=== PATIENT | female | born 1945 | race Caucasian/White ===

== ENCOUNTER 2024-03-21 11:44 | Inpatient (IN) | payer OTHER, MEDICARE ==
[2024-03-21] MEDS ORDERED: methylPREDNISolone NA SUCC 125 MG/2 ML VIAL ONE (12:52)
[2024-03-21] MEDS ORDERED: ALBUTEROL SO4 2.5/IPRATROPIUM 0.5 INH SOL 3 ML VIAL.NEB. NEB ONE ×3 (12:52→20:02)
[2024-03-21] MEDS: methylPREDNISolone NA SUCC 125 MG/2 ML VIAL IVPUSH ONE (13:00)
[2024-03-21] MEDS: ALBUTEROL SO4 2.5/IPRATROPIUM 0.5 INH SOL 3 ML VIAL.NEB. NEB ONE ×2 (13:00→14:06)
[2024-03-21 13:03] LABS: BASO % 0.1 % (0-2.0); HEMATOCRIT 37.1 % (32.4-45.2); HEMOGLOBIN 12.6 GM/dL (10.7-15.3); LYMPH % 5.2 % (8-40); MCH 29.5 pg (25.7-33.7); MCHC 34.1 g/dl (32.0-36.0); MEAN CELL VOLUME 86.6 fl (80-96); MEAN PLT VOLUME 7.1 fl (7.5-11.1); MONO % 6.7 % (3.8-10.2); PLATELET COUNT 360 10^3/uL (134-434); RBC 4.29 M/mm3 (3.60-5.2); RDW 13.1 % (11.6-15.6); WHITE BLOOD COUNT 13.3 K/mm3 (4.0-10.0)
[2024-03-21 13:08] LABS: INR 0.94 (0.83-1.09); PROTHROMBIN TIME (PATIENT) 10.6 SEC (9.7-13.0)
[2024-03-21 13:20] LABS: POTASSIUM 4.6 mmol/L (3.5-5.1)
[2024-03-21 13:22] LABS: CALCIUM 9.6 mg/dL (8.5-10.1)
[2024-03-21 13:23] LABS: ALBUMIN 3.5 g/dl (3.4-5.0); BLOOD UREA NITROGEN 27.1 mg/dL (7-18)
[2024-03-21 13:27] LABS: BILIRUBIN,TOTAL 0.3 mg/dL (0.2-1); TOT PROT 6.5 g/dl (6.4-8.2)
[2024-03-21] MEDS ORDERED: AZITHROMYCIN IVPB 500 MG/250 ML BAG IVPB ONE (14:24)
[2024-03-21] MEDS: AZITHROMYCIN IVPB 500 MG in DEXTROSE 5%-WATER - 250 ML IVPB ONE (14:25)
[2024-03-21] MEDS ORDERED: ALBUTEROL SO4 0.042% IH SOL 1.25 MG/3 ML VIAL.NEB NEB PRN (15:59)
[2024-03-21] MEDS: SODIUM CHLORIDE 500 ML IV STA (16:33)
[2024-03-21] MEDS: REMDESIVIR 200 MG in SODIUM CHLORIDE 250 ML IVPB ONE (17:37)
[2024-03-21] MEDS ORDERED: ENOXAPARIN NA (PORCINE) 40 MG/0.4 ML DISP.SYRIN SQ ONE (19:37)
[2024-03-21] MEDS: TIOTROPIUM BROMIDE 2.5 MCG (SPIRIVA) RESPIMAT INHALER IH SCH (19:58)
[2024-03-21] MEDS: ENOXAPARIN NA (PORCINE) 40 MG/0.4 ML DISP.SYRIN SQ SCH (19:58)
[2024-03-21] MEDS: ALBUTEROL SO4 2.5/IPRATROPIUM 0.5 INH SOL 3 ML VIAL.NEB. NEB SCH (20:01)
[2024-03-21] MEDS ORDERED: PATIENT'S OWN MEDICATION (NON-FORMULARY) (Mirabegron [Myrbetriq] 25 MG Tab.Er.24h) PO SCH (20:30)
[2024-03-21] MEDS ORDERED: INSULIN ASPART SLIDING SCALE (NOVOLOG) 1 VIAL SQ SCH (22:00)
[2024-03-21] MEDS: ROSUVASTATIN CA 10 MG TABLET PO SCH (22:17)
[2024-03-21] MEDS: ZOLPIDEM TARTRATE 5 MG TABLET PO PRN (22:17)
[2024-03-21] MEDS: BUDESONIDE/FORMETEROL FUMARATE 160/4.5 mcg INHALER IH SCH (22:18)
[2024-03-21] MEDS: BENZONATATE 200 MG CAPSULE PO PRN (23:22)
[2024-03-21 23:48] VITALS: BMI 20.9
[2024-03-22] MEDS: LEVOTHYROXINE NA 88 MCG TABLET (FP) PO SCH (06:25)
[2024-03-22] MEDS: INSULIN ASPART SLIDING SCALE (NOVOLOG) 1 VIAL SQ SCH (06:33)
[2024-03-22] MEDS ORDERED: INSULIN ASPART SLIDING SCALE (NOVOLOG) 1 VIAL SQ SCH (07:00)
[2024-03-22] MEDS: DEXAMETHASONE SOD PHOSPHATE 10 MG/1 ML VIAL IVPUSH SCH (09:48)
[2024-03-22] MEDS: AZITHROMYCIN IVPB 250 MG in DEXTROSE 5%-WATER - 250 ML IVPB SCH (09:48)
[2024-03-22 10:41] LABS: HEMATOCRIT 38.6 % (32.4-45.2); HEMOGLOBIN 13.2 GM/dL (10.7-15.3); MCH 29.9 pg (25.7-33.7); MCHC 34.1 g/dl (32.0-36.0); MEAN CELL VOLUME 87.6 fl (80-96); MEAN PLT VOLUME 7.8 fl (7.5-11.1); PLATELET COUNT 328 10^3/uL (134-434); RBC 4.41 M/mm3 (3.60-5.2); WHITE BLOOD COUNT 10.5 K/mm3 (4.0-10.0)
[2024-03-22 10:42] LABS: POTASSIUM 3.6 mmol/L (3.5-5.1)
[2024-03-22 10:53] LABS: BLOOD UREA NITROGEN 21.2 mg/dL (7-18); MAGNESIUM 2.1 mg/dL (1.8-2.4)
[2024-03-22 10:55] LABS: CREATININE 0.9 mg/dL (0.55-1.3)
[2024-03-22 10:56] LABS: PHOSPHOROUS 2.9 mg/dL (2.5-4.9)
[2024-03-23 08:37] LABS: BASO % 0.2 % (0-2.0); EOS % 0.1 % (0-4.5); HEMATOCRIT 37.1 % (32.4-45.2); HEMOGLOBIN 12.4 GM/dL (10.7-15.3); LYMPH % 12.5 % (8-40); MCH 29.7 pg (25.7-33.7); MCHC 33.3 g/dl (32.0-36.0); MEAN CELL VOLUME 88.9 fl (80-96); MEAN PLT VOLUME 7.4 fl (7.5-11.1); MONO % 7.9 % (3.8-10.2); NEUT % 79.3 % (42.8-82.8); PLATELET COUNT 283 10^3/uL (134-434); RBC 4.17 M/mm3 (3.60-5.2); RDW 13.2 % (11.6-15.6); WHITE BLOOD COUNT 8.8 K/mm3 (4.0-10.0)
[2024-03-23 08:52] LABS: CHLORIDE 106 mmol/L (98-107); POTASSIUM 3.6 mmol/L (3.5-5.1); SODIUM 140 mmol/L (136-145)
[2024-03-23 08:54] LABS: CALCIUM 8.3 mg/dL (8.5-10.1)
[2024-03-23 08:55] LABS: ANION GAP 6 mmol/L (4-13); BLOOD UREA NITROGEN 23.5 mg/dL (7-18); CO2 28 mmol/L (21-32); GLUCOSE,RANDOM 99 mg/dL (74-106)
[2024-03-23 08:58] LABS: CREATININE 0.8 mg/dL (0.55-1.3)
[2024-03-23] MEDS: ACETAMINOPHEN WITH CODEINE 300MG/30MG TABLET PO PRN (18:09)
[2024-03-23] MEDS: methylPREDNISolone NA SUCC 40 MG/1 ML VIAL IVPUSH ONE (18:09)
[2024-03-23] MEDS: ALBUTEROL SO4 0.083% IH SOL 2.5 MG/3 ML VIAL.NEB. NEB PRN (18:17)
[2024-03-24 14:46] VITALS: RESP 19
[2024-03-24 14:47] VITALS: BP 155/72; PULSE 88; TEMP 98.1
== END 2024-03-24 15:37 | disposition home or self-care (01) | DRG 190 ==
LOC: JER 11:44 → JERBED 17:03 → J7W 20:29 → OBSVTOIN 03-22 15:15
PROVIDERS: ADMIT Internal Medicine; ATTEND Internal Medicine
DX: J44.1 Chronic obstructive pulmonary disease with (acute) exacerbation (principal); U07.1 COVID-19; J45.901 Unspecified asthma with (acute) exacerbation; E11.9 Type 2 diabetes mellitus without complications; E78.5 Hyperlipidemia, unspecified; R05.3 Chronic cough
CPT/HCPCS: 0241U-QW; 36415; 71046-TC-FY; 71250-TC; 80048; 80053; 82962; 83735; 84100; 85025; 85027; 85379; 85610; 85730; 86140; 93005; 93010; 94010; 94640; 94761; 97116-GP; 97161-GP; 99285-25; G0378; J0248; J1100

== ENCOUNTER 2024-07-10 04:56 | Day surgery (SDC) | payer OTHER, MEDICARE ==
[2024-07-09 09:40] VITALS: BMI 23.4
[2024-07-10 10:25] VITALS: RESP 20
[2024-07-10] MEDS: LIDOCAINE HCL 1% PRESERVATIVE FREE - 30ML VIAL IJ ONE (11:47)
[2024-07-10] MEDS: BUPIVACAINE HCL/PF 0.75% 10 ML VIAL NR ONE (11:48)
[2024-07-10 12:18] VITALS: BP 149/58; PULSE 59; TEMP 96.9
== END 2024-07-10 12:40 | disposition home or self-care (01) ==
LOC: JASU-SURG 04:56
PROVIDERS: ATTEND Pain Medicine Pain Medicine
PROC: 3E0T33Z Introduction of Anti-inflammatory into Peripheral Nerves and Plexi, Percutaneous Approach (ICD-10-PCS; 2024-07-10)
PROC: 3E0T3BZ Introduction of Anesthetic Agent into Peripheral Nerves and Plexi, Percutaneous Approach (ICD-10-PCS; principal; 2024-07-10 11:45)
DX: M47.816 Spondylosis without myelopathy or radiculopathy, lumbar region (principal)
CPT/HCPCS: 76000-TC-FY

== ENCOUNTER 2024-08-08 04:09 | Day surgery (SDC) | payer OTHER, MEDICARE ==
[2024-08-04 09:48] VITALS: BMI 23.4
[~2024-08-08 04:09] MED LIST: ACETAMINOPHEN 500 MG TABLET (FP) PO PRN
[2024-08-08] MEDS ORDERED: BUPIVACAINE HCL/PF 0.75% 10 ML VIAL ONE (07:25)
[2024-08-08 10:27] VITALS: RESP 20
[2024-08-08] MEDS: BUPIVACAINE HCL/PF 0.75% 10 ML VIAL NR ONE ×3 (11:44→11:47)
[2024-08-08] MEDS: LIDOCAINE HCL 1% PRESERVATIVE FREE - 30ML VIAL IJ ONE ×2 (11:44)
[2024-08-08 13:34] VITALS: BP 147/66; PULSE 55; TEMP 97.5
== END 2024-08-08 12:05 | disposition home or self-care (01) ==
LOC: JASU-SURG 04:09
PROVIDERS: ATTEND Pain Medicine Pain Medicine
PROC: 3E0T33Z Introduction of Anti-inflammatory into Peripheral Nerves and Plexi, Percutaneous Approach (ICD-10-PCS; 2024-08-08)
PROC: BR16YZZ Fluoroscopy of Lumbar Facet Joint(s) using Other Contrast (ICD-10-PCS; 2024-08-08)
PROC: 3E0T3BZ Introduction of Anesthetic Agent into Peripheral Nerves and Plexi, Percutaneous Approach (ICD-10-PCS; principal; 2024-08-08 14:30)
DX: M47.816 Spondylosis without myelopathy or radiculopathy, lumbar region (principal)
CPT/HCPCS: 76000-TC-FY

== ENCOUNTER 2024-09-04 04:10 | Day surgery (SDC) | payer OTHER, MEDICARE ==
[2024-08-29 12:31] VITALS: BMI 23.4
[2024-09-04] MEDS ORDERED: ACETAMINOPHEN 500 MG TABLET (FP) PO PRN (09:10)
[2024-09-04 10:55] VITALS: RESP 18
[2024-09-04 12:47] VITALS: BP 152/62; PULSE 65; TEMP 97.9
== END 2024-09-04 13:02 | disposition home or self-care (01) ==
LOC: JASU-SURG 04:10
PROVIDERS: ATTEND Pain Medicine Pain Medicine
PROC: 015B3ZZ Destruction of Lumbar Nerve, Percutaneous Approach (ICD-10-PCS; principal; 2024-09-04 12:00)
DX: M47.816 Spondylosis without myelopathy or radiculopathy, lumbar region (principal)
CPT/HCPCS: 76000-TC-FY

== ENCOUNTER 2024-10-30 06:52 | Day surgery (SDC) | payer OTHER, MEDICARE ==
[2024-10-27 15:29] VITALS: BMI 23.4
[2024-10-30] MEDS ORDERED: ACETAMINOPHEN 500 MG TABLET (FP) PO PRN (08:37)
[2024-10-30 11:57] VITALS: RESP 18; TEMP 97.8
[2024-10-30 16:00] VITALS: BP 149/81; PULSE 56
== END 2024-10-30 12:08 | disposition home or self-care (01) ==
LOC: JASU-SURG 06:52
PROVIDERS: ATTEND Pain Medicine Pain Medicine
PROC: X05133A Destruction of Renal Sympathetic Nerve(s) using Radiofrequency Ablation, Percutaneous Approach, New Technology Group 10 (ICD-10-PCS; principal; 2024-10-30 09:10)
DX: M47.816 Spondylosis without myelopathy or radiculopathy, lumbar region (principal)
CPT/HCPCS: 76000-TC-FY

== ENCOUNTER 2025-04-15 10:59 | Observation (INO) | payer OTHER, MEDICARE ==
[2025-04-15] MEDS: SODIUM CHLORIDE 0.9% 500 ML INFUS.BAG IV ONE (12:47)
[2025-04-15 13:00] LABS: ABSOLUTE IMMATURE GRANULOCYTES 0.02 x10^3/uL (0.0-0.031); BASOPHILS # 0.04 x10^3/uL (0.01-0.08); EOSINOPHIL % 3.3 % (0.7-5.8); EOSINOPHILS # 0.19 x10^3/uL (0.04-0.36); MCHC 32.4 g/dl (32.2-35.5); MEAN CELL VOLUME 91.7 fl (79.4-94.8); MEAN PLT VOLUME 9.2 fl (9.4-12.3); MONOCYTE # 0.35 x10^3/uL (0.24-0.86); MONOCYTE % 6.2 % (4.7-12.5); RDW 12.5 % (12.5-17.0)
[2025-04-15 13:02] LABS: EPI CELLS 9 /uL (0-25.1); HYALINE CASTS 0 /uL (0-3.1); URINE APPEARANCE CLEAR; URINE BACTERIA 15 /uL (0-1359); URINE BILIRUBIN NEGATIVE (NEGATIVE); URINE COLOR YELLOW; URINE GLUCOSE (UA) NEGATIVE (NEGATIVE); URINE KETONE NEGATIVE (NEGATIVE); URINE LEUK ESTERASE 2+ (NEGATIVE); URINE NITRITE NEGATIVE (NEGATIVE); URINE PROTEIN NEGATIVE (NEGATIVE); URINE RBC 16 /uL (0-23.9); URINE UROBILINOGEN 0.2 mg/dL (0.2-1.0); URINE WBC 34 /uL (0-25.8)
[2025-04-15 13:09] LABS: INR 1.03 (0.83-1.09); PROTHROMBIN TIME (PATIENT) 11.2 SEC (9.7-13.0)
[2025-04-15 13:12] LABS: ACTIVATED PTT 30.1 SECONDS (25.2-36.5)
[2025-04-15 13:19] LABS: GLUCOSE,RANDOM 102.0 mg/dL (74-106); TOT PROT 6.2 g/dl (6.4-8.2)
[2025-04-15 13:20] LABS: CO2 27.0 mmol/L (21-32)
[2025-04-15 13:22] LABS: ALK PHOS 78.0 U/L (40-150)
[2025-04-15 13:24] LABS: SGPT/ALT 26.0 U/L (0-55)
[2025-04-15 13:25] LABS: CREATININE 0.91 mg/dL (0.55-1.3); LDL CHOLESTEROL (ONLY SJRH) 70.0 mg/dL (5-100); SGOT/AST 27.0 U/L (5-34)
[2025-04-15 18:37] LABS: HIV INTERPRETATION NEGATIVE (NEGATIVE)
[2025-04-15 18:38] LABS: HCV DIAGNOSTIC IN-HOUSE W/RFLX NON-REACTIVE (NONREACTIVE)
[2025-04-15 18:53] VITALS: BMI 23.2
[2025-04-15] MEDS: ALBUTEROL SO4 2.5/IPRATROPIUM 0.5 INH SOL 3 ML VIAL.NEB. NEB SCH (20:30)
[2025-04-15] MEDS ORDERED: traZODone HCL 50 MG TABLET (FP) ONE (21:11)
[2025-04-15] MEDS: INSULIN ASPART SLIDING SCALE (NOVOLOG) 1 VIAL SQ SCH (21:20)
[2025-04-15] MEDS: ROSUVASTATIN CA 20 MG TABLET PO SCH (21:24)
[2025-04-15] MEDS: MONTELUKAST NA 10 MG TABLET PO SCH (21:24)
[2025-04-15] MEDS: traZODone HCL 100 MG TABLET (FP) PO PRN (21:25)
[2025-04-15] MEDS: POLYETHYLENE GLYCOL (HEALTHYLAX) 3350 17 GM PACKET PO SCH (21:25)
[2025-04-15] MEDS: FLUTICASONE/UMECLIDIN/VILANTER(200-62.5-25 TRELEGY ELLIPTA) INAHLER IH SCH (21:26)
[2025-04-16] MEDS: LEVOTHYROXINE NA 100 MCG TABLET (FP) PO SCH (06:04)
[2025-04-16 06:47] LABS: ABSOLUTE IMMATURE GRANULOCYTES 0.03 x10^3/uL (0.0-0.031); BASOPHILS # 0.02 x10^3/uL (0.01-0.08); EOSINOPHIL % 3.4 % (0.7-5.8); EOSINOPHILS # 0.19 x10^3/uL (0.04-0.36); MCHC 32.1 g/dl (32.2-35.5); MEAN CELL VOLUME 92.5 fl (79.4-94.8); MEAN PLT VOLUME 9.4 fl (9.4-12.3); MONOCYTE # 0.38 x10^3/uL (0.24-0.86); MONOCYTE % 6.7 % (4.7-12.5); RDW 12.5 % (12.5-17.0)
[2025-04-16 07:05] LABS: GLUCOSE,RANDOM 120.0 mg/dL (74-106)
[2025-04-16 07:06] LABS: TOT PROT 5.6 g/dl (6.4-8.2)
[2025-04-16 07:07] LABS: CO2 25.0 mmol/L (21-32)
[2025-04-16 07:09] LABS: ALK PHOS 71.0 U/L (40-150)
[2025-04-16 07:11] LABS: CREATININE 0.87 mg/dL (0.55-1.3); SGOT/AST 24.0 U/L (5-34); SGPT/ALT 22.0 U/L (0-55)
[2025-04-16] MEDS ORDERED: PATIENT'S OWN MEDICATION (NON-FORMULARY) (Omeprazole [Omeprazole] 20 MG Tablet.Dr) PO SCH (10:00)
[2025-04-16] MEDS ORDERED: PATIENT'S OWN MEDICATION (NON-FORMULARY) (Mirabegron [Myrbetriq] 25 MG Tab.Er.24h) PO SCH (10:00)
[2025-04-16] MEDS: ENOXAPARIN NA (PORCINE) 40 MG/0.4 ML DISP.SYRIN SQ SCH (10:21)
[2025-04-16] MEDS: EZETIMIBE 10 MG TABLET (FP) PO SCH (10:21)
[2025-04-16] MEDS: amLODIPine BESYLATE 2.5 MG TABLET (FP) PO SCH (10:21)
[2025-04-16] MEDS: PANTOPRAZOLE 40 MG TABLET PO SCH (10:21)
[2025-04-16] MEDS: DOCUSATE SODIUM 100 MG CAPSULE (FP) PO SCH (10:21)
[2025-04-16] MEDS: LACTULOSE 20 GM/30 ML UDC (FOR ORAL USE ONLY) PO ONE (10:22)
[2025-04-16] MEDS: ASPIRIN COATED 81 MG TABLET.EC PO SCH (10:40)
[2025-04-16] MEDS: ASPIRIN 81 MG CHEWABLE TABLETS PO ONE (14:19)
[2025-04-16] MEDS: diphenhydrAMINE HCL 25 MG CAPSULE (FP) PO PRN (16:32)
[2025-04-16] MEDS: HYDROCORTISONE 1% TOPICAL CREAM 30 GM TUBE TP PRN (16:48)
[2025-04-16] MEDS: HYDROCORTISONE 1% TOPICAL CREAM 30 GM TUBE TP SCH ×2 (16:48→21:22)
[2025-04-16] MEDS: INSULIN ASPART SLIDING SCALE (NOVOLOG) 1 VIAL SQ SCH (17:07)
[2025-04-16] MEDS: ROSUVASTATIN CA 20 MG TABLET PO SCH (21:19)
[2025-04-16] MEDS ORDERED: traZODone HCL 50 MG TABLET (FP) ONE (21:25)
[2025-04-17 07:00] LABS: ABSOLUTE IMMATURE GRANULOCYTES 0.02 x10^3/uL (0.0-0.031); BASOPHILS # 0.04 x10^3/uL (0.01-0.08); EOSINOPHIL % 5.5 % (0.7-5.8); EOSINOPHILS # 0.25 x10^3/uL (0.04-0.36); MCHC 31.9 g/dl (32.2-35.5); MEAN CELL VOLUME 91.5 fl (79.4-94.8); MEAN PLT VOLUME 9.6 fl (9.4-12.3); MONOCYTE # 0.40 x10^3/uL (0.24-0.86); MONOCYTE % 8.9 % (4.7-12.5); RDW 12.7 % (12.5-17.0)
[2025-04-17 07:04] LABS: GLUCOSE,RANDOM 117.0 mg/dL (74-106); TOT PROT 5.5 g/dl (6.4-8.2)
[2025-04-17 07:05] LABS: CO2 25.0 mmol/L (21-32)
[2025-04-17 07:07] LABS: ALK PHOS 72.0 U/L (40-150)
[2025-04-17 07:09] LABS: SGOT/AST 27.0 U/L (5-34); SGPT/ALT 25.0 U/L (0-55)
[2025-04-17 07:10] LABS: CREATININE 0.77 mg/dL (0.55-1.3)
[2025-04-17] MEDS: CLOPIDOGREL BISULFATE 75 MG TABLET (FP) PO SCH (09:34)
[2025-04-17] MEDS: ASPIRIN 81 MG CHEWABLE TABLETS PO SCH (09:34)
[2025-04-17] MEDS ORDERED: NYSTATIN POWDER 100,000 UNITS/GM - 15 GM TOPICAL POWDER TP SCH (10:00)
[2025-04-17] MEDS: SENNOSIDES 8.6MG TABLET (FP) PO PRN (10:26)
[2025-04-17] MEDS: ALBUTEROL SO4 HFA INHALER IH PRN (11:48)
[2025-04-17] MEDS: LACTULOSE 20 GM/30 ML UDC (FOR ORAL USE ONLY) PO ONE (12:16)
[2025-04-17] MEDS: predniSONE 20 MG TABLET (UD) PO SCH (13:22)
[2025-04-17] MEDS: AZITHROMYCIN 250 MG TABLET PO SCH (13:22)
[2025-04-17] MEDS: ACETAMINOPHEN 325 MG TABLET (FP) PO PRN (15:50)
[2025-04-17] MEDS: FLUTICASONE/UMECLIDIN/VILANTER(200-62.5-25 TRELEGY ELLIPTA) INAHLER IH SCH (17:28)
[2025-04-17] MEDS: BISACODYL 10 MG SUPP.RECT PR ONE (18:58)
[2025-04-17] MEDS ORDERED: traZODone HCL 50 MG TABLET (FP) ONE (21:13)
[2025-04-17] MEDS: GABAPENTIN 300 MG CAPSULE PO SCH (21:59)
[2025-04-18] MEDS: BISACODYL 5 MG TABLET.DR (FP) PO PRN (06:27)
[2025-04-18 06:57] LABS: ABSOLUTE IMMATURE GRANULOCYTES 0.03 x10^3/uL (0.0-0.031); BASOPHILS # 0.01 x10^3/uL (0.01-0.08); EOSINOPHIL % 0.0 % (0.7-5.8); EOSINOPHILS # 0.00 x10^3/uL (0.04-0.36); MCHC 32.2 g/dl (32.2-35.5); MEAN CELL VOLUME 91.0 fl (79.4-94.8); MEAN PLT VOLUME 9.7 fl (9.4-12.3); MONOCYTE # 0.24 x10^3/uL (0.24-0.86); MONOCYTE % 4.8 % (4.7-12.5); RDW 12.5 % (12.5-17.0)
[2025-04-18 07:41] LABS: GLUCOSE,RANDOM 126.0 mg/dL (74-106); TOT PROT 5.5 g/dl (6.4-8.2)
[2025-04-18 07:42] LABS: CO2 22.0 mmol/L (21-32)
[2025-04-18 07:44] LABS: ALK PHOS 73.0 U/L (40-150)
[2025-04-18 07:46] LABS: SGPT/ALT 40.0 U/L (0-55)
[2025-04-18 07:47] LABS: CREATININE 0.71 mg/dL (0.55-1.3); SGOT/AST 37.0 U/L (5-34)
[2025-04-18] MEDS ORDERED: BISACODYL 5 MG TABLET.DR (FP) PO ONE (08:45)
[2025-04-18] MEDS: BISACODYL 5 MG TABLET.DR (FP) PO ONE (11:43)
[2025-04-18] MEDS: SODIUM PHOSPHATE/NA BIPHOS 133 ML ENEMA RC ONE (12:01)
[2025-04-18 13:15] VITALS: BP 130/60
[2025-04-18 15:38] VITALS: PULSE 67; RESP 18; TEMP 97.9
[2025-04-25 15:06] LABS: METHYLMALONIC ACID- 241 nmol/L (0-378)
== END 2025-04-18 15:45 | disposition home health service (06) ==
LOC: JER 10:59 → JERBED 15:07 → J4W 16:50
PROVIDERS: ADMIT Internal Medicine; ATTEND Internal Medicine
PROC: 3E023GC Introduction of Other Therapeutic Substance into Muscle, Percutaneous Approach (ICD-10-PCS; principal; 2025-04-15)
DX: G51.0 Bell's palsy (principal); H81.10 Benign paroxysmal vertigo, unspecified ear; J44.9 Chronic obstructive pulmonary disease, unspecified; R26.81 Unsteadiness on feet; E11.9 Type 2 diabetes mellitus without complications; M48.00 Spinal stenosis, site unspecified; E78.5 Hyperlipidemia, unspecified; G25.2 Other specified forms of tremor; I95.9 Hypotension, unspecified; Z91.013 Allergy to seafood
CPT/HCPCS: 36415; 70450-TC; 70496-TC; 70498-TC; 70551-TC; 80053; 80061; 81003; 82550; 82607; 82962; 83036; 83735; 83921; 84100; 84155; 84165; 84436; 84443; 84484; 85025; 85610; 85730; 86618; 86803; 86850; 86900; 86901; 87389; 93005; 93010; 93306-TC; 94640; 96372; 97116-GP; 97161-GP; 99285-25; G0378